=== PATIENT | female | born 1940 | race Caucasian/White ===

== ENCOUNTER 2016-09-27 08:02 | Day surgery (SDC) | payer OTHER ==
[~2016-09-27 08:02] MED LIST: CITA10TA4 PO; DIAZ2 PO; FURO1TAB93 PO; LACT20SO4 PO; LEVO88TA2 PO; SODI650T PO; SPIR50TA21 PO
[2016-09-27 08:30] VITALS: BP 119/66; PULSE 64; RESP 14; TEMP 97.2; O2SAT 98
[2016-09-27 10:18] VITALS: BP 100/55; PULSE 68; RESP 20; TEMP 98.3; O2SAT 99
[2016-09-27] MEDS ORDERED: ALBUMIN HUMAN 25% 50 GM IV ONE (10:30)
[2016-09-27 10:35] VITALS: BP 106/56; PULSE 68; RESP 20; O2SAT 99
--- NOTE | 2016-09-27 13:14 | RADRPT ---
EXAM DATE/TIME: 09/27/2016 08:29 [facility] COMPARISON: US GUIDED ABD PARACENTESIS, September 20, 2016, 8:13. EXTERNAL COMPARISON : [facility], US ABDOMEN LIMITED, August 12, 2016, June 04, 2016. INDICATIONS : Ascites. MEDICAL HISTORY : Arthritis. Hypothyroidism. Ascites. CAD. ESLD. Stage III renal disease. Lower back pain. SURGICAL HISTORY : Appendectomy. Collar bone repair. Paracentesis. ENCOUNTER: Sequela ACUITY: 1 week PAIN SCORE: 1/10 LOCATION: Right lower quadrant FLUID: Total volume of 7,300 cc of clear, yellow fluid was removed. Fluid was discarded. Paracentesis was therapeutic only. Post procedure scanning reveals no hematoma or other complication. TECHNIQUE: 1. Ultrasound guidance for abdominal paracentesis. 2. Paracentesis. The risks, benefits, and alternatives to ultrasound guided paracentesis were explained to the patient in detail including the risk of bleeding and infection. Written and verbal informed consent was obt ained. With the patient on the ultrasound table, ultrasound imaging was used to select the most appropriate approach for paracentesis. Overlying skin was prepped and draped in the usual sterile fashion and wi th a local anesthetic, a dermatotomy was made with an 11 blade scalpel. A 6 [place]ian Wcj-K-hhbdwooq ca theter was introduced into the peritoneal cavity and fluid was collected. The patient tolerated the procedure well and left the ultrasound suite in stable condition. CONCLUSION: Uncomplicated ultrasound guided paracentesis. Patient received albumin per protocol. Papo Keating MD FACR on September 27, 2016 at 13:12 Board Certified Radiologist. This report was verified electronically.
== END 2016-09-27 11:15 | disposition home or self-care (01) ==
LOC: HRAD 08:02 → HRIP 08:03 → HRAD 11:15
PROVIDERS: ATTEND Family Medicine
DX: R18.8 Other ascites (principal); I25.10 Atherosclerotic heart disease of native coronary artery without angina pectoris; E03.9 Hypothyroidism, unspecified; M19.90 Unspecified osteoarthritis, unspecified site
CPT/HCPCS: 49083; C1729; P9047

== ENCOUNTER 2016-10-04 08:11 | Day surgery (SDC) | payer OTHER ==
[2016-10-04 08:39] VITALS: BP 115/56; PULSE 67; RESP 14; TEMP 97; O2SAT 99
[2016-10-04 09:49] VITALS: BP 98/54; PULSE 67; RESP 14; TEMP 97; O2SAT 93
[2016-10-04 09:50] VITALS: BP 113/58; PULSE 67; RESP 18; TEMP 98.3; O2SAT 96
[2016-10-04] MEDS ORDERED: ALBUMIN HUMAN 25% 12.5GM-W/25GM FOR 37.5GM IV ONE (10:00)
[2016-10-04] MEDS ORDERED: ALBUMIN HUMAN 25% 25GM-W/12.5GM FOR 37.5GM IV ONE (10:00)
[2016-10-04 10:05] VITALS: BP 94/47; PULSE 85; RESP 16; O2SAT 95
--- NOTE | 2016-10-04 11:18 | RADRPT ---
EXAM DATE/TIME: 10/04/2016 08:33 [facility] COMPARISON: US GUIDED ABD PARACENTESIS, September 27, 2016, 8:29. INDICATIONS : Ascites. MEDICAL HISTORY : Arthritis. Hypothyroidism. Ascites. CAD. ESLD. Stage III renal disease. Lower back pain. SURGICAL HISTORY : Appendectomy. Collar bone repair. Paracentesis. ENCOUNTER: Sequela ACUITY: 1 week PAIN SCORE: 1/10 LOCATION: Right lower quadrant FLUID: Total volume of 6300 cc of clear, yellow fluid was removed. Fluid was discarded. Paracentesis was therapeutic only. Post procedure scanning reveals no hematoma or other complication. TECHNIQUE: 1. Ultrasound guidance for abdominal paracentesis. 2. Paracentesis. The risks, benefits, and alternatives to ultrasound guided paracentesis were explained to the patient in detail including the risk of bleeding and infection. Written and verbal informed consent was obt ained. Under direct ultrasound guidance 6-Latvian catheter was placed the peritoneal space and paracentesis p erformed. The patient tolerated the procedure well and left the ultrasound suite in stable condition. CONCLUSION: Uncomplicated ultrasound guided paracentesis. Patient received albumin per protocol. Papo Keating MD FACR on October 04, 2016 at 11:15 Board Certified Radiologist. This report was verified electronically.
== END 2016-10-04 10:45 | disposition home or self-care (01) ==
LOC: HRAD 08:11 → HRIP 08:12 → HRAD 10:45
PROVIDERS: ATTEND Family Medicine
DX: R18.8 Other ascites (principal)
CPT/HCPCS: 49083; 96365; C1729; P9047

== ENCOUNTER 2016-10-11 08:02 | Day surgery (SDC) | payer OTHER ==
[2016-10-11 08:28] VITALS: BP 103/53; PULSE 62; RESP 14; TEMP 97; O2SAT 91
--- NOTE | 2016-10-11 09:40 | PD.RAD ---
Post US Procedure Prog Note Pre Procedure Diagnosis: (1) Ascites (2) Cirrhosis Post Procedure Diagnosis: (1) Ascites (2) Cirrhosis Procedure Date: Oct 11, 2016 Supervising Radiologist: Hugo Kaye Anesthesia: Local Plan of Activity Patient to Unit: ROPU Patient Condition: Fair See PACS Report for procedural detail/treatment Drainage Procedure Procedure 1 Imaging Guidance: Ultrasound Side: Right Procedure Type: Paracentesis Procedure: Removal Drainage: Suction Fluid Description: Clear, Yellow Hugo Kaye MD Oct 11, 2016 09:40
[2016-10-11 10:30] VITALS: BP 99/54; PULSE 62; RESP 18; O2SAT 100
[2016-10-11 10:50] VITALS: BP 100/49; PULSE 65; RESP 18
[2016-10-11] MEDS ORDERED: ALBUMIN HUMAN 25% 25GM-W/12.5GM FOR 37.5GM IV ONE (11:00)
[2016-10-11] MEDS ORDERED: ALBUMIN HUMAN 25% 12.5GM-W/25GM FOR 37.5GM IV ONE (11:00)
--- NOTE | 2016-10-11 11:46 | RADRPT ---
EXAM DATE/TIME: 10/11/2016 08:32 [facility] COMPARISON: EXTERNAL COMPARISON: US GUIDED ABD PARACENTESIS, October 04, 2016, 8:33. [facility], US ABDOMEN - UPPER LIMITED, Aug 12 2016. US ABDOMEN - UPPER LIMITED, June 04, 2016. INDICATIONS : Ascites. MEDICAL HISTORY : Arthritis. Hypothyroidism. Ascites. Coronary artery diease. ESLD non- alcoholic. Stage III renal dis ease. Lower back pain. SURGICAL HISTORY : Appendectomy. Collar bone repair. Paracentesis. ENCOUNTER: Sequela ACUITY: 1 week PAIN SCORE: 1/10 LOCATION: Right lower quadrant FLUID: Total volume of 6500 cc of clear, yellow fluid was removed. Fluid was discarded. Paracentesis was therapeutic only. Post procedure scanning reveals no hematoma or other complication. TECHNIQUE: 1. Ultrasound guidance for abdominal paracentesis. 2. Paracentesis. The risks, benefits, and alternatives to ultrasound guided paracentesis were explained to the patient in detail including the risk of bleeding and infection. Written and verbal informed consent was obt ained. With the patient on the ultrasound table, ultrasound imaging was used to select the most appropriate approach for paracentesis. Overlying skin was prepped and draped in the usual sterile fashion and wi th a local anesthetic, a dermatotomy was made with an 11 blade scalpel. A 6 [place]se Hvy-G-hwrpgedt ca theter was introduced into the peritoneal cavity and fluid was collected. The patient tolerated the procedure well and left the ultrasound suite in stable condition. CONCLUSION: Uncomplicated ultrasound guided paracentesis. Hugo Kaye MD on October 11, 2016 at 11:44 Board Certified Radiologist. This report was verified electronically.
== END 2016-10-11 12:39 | disposition home or self-care (01) ==
LOC: HRIP 08:02 → HRAD 08:02
PROVIDERS: ATTEND Family Medicine
DX: R18.8 Other ascites (principal)
CPT/HCPCS: 49083; C1729; P9047

== ENCOUNTER 2016-10-18 08:28 | Day surgery (SDC) | payer OTHER ==
[2016-10-18] MEDS ORDERED: ALBUMIN HUMAN 25% 25 GM/100 ML BAGP IV ONE (10:00)
[2016-10-18 10:10] VITALS: BP 122/65; PULSE 68; RESP 18; TEMP 98; O2SAT 99
[2016-10-18 10:25] VITALS: BP 119/60; PULSE 68; RESP 16; O2SAT 99
[2016-10-18] MEDS ORDERED: FURO1TAB60 PO ×2 (11:46)
[2016-10-18] MEDS ORDERED: LACT10SO PO (11:49)
[2016-10-18] MEDS ORDERED: LEVO88TA2 PO (11:49)
[2016-10-18] MEDS ORDERED: SPIR50TA PO (11:49)
[2016-10-18] MEDS ORDERED: CITA10TA4 PO (11:49)
--- NOTE | 2016-10-18 13:37 | RADRPT ---
EXAM DATE/TIME: 10/18/2016 08:49 [facility] COMPARISON: EXTERNAL COMPARISON: US GUIDED ABD PARACENTESIS, October 11, 2016, 8:32. US GUIDED ABD PARACENTESIS, October 04, 2016, 8: 33. [facility], US ABDOMEN - UPPER LIMITED, Aug 12 2016. US ABDOMEN - UPPER LIMITED,Sept er 2015. INDICATIONS : Ascites. MEDICAL HISTORY : Arthritis. Hypothyroidism. Ascites. Coronary artery disease. ESLD nonalcoholic. Stage III renal disea se. Lower back pain. SURGICAL HISTORY : Appendectomy. Collar bone repair. Paracentesis. ENCOUNTER: Sequela ACUITY: 1 week PAIN SCORE: 0/10 LOCATION: Right lower quadrant FLUID: Total volume of 7,800 cc of clear, yellow fluid was removed. Fluid was discarded. Paracentesis was therapeutic only. Post procedure scanning reveals no hematoma or other complication. TECHNIQUE: 1. Ultrasound guidance for abdominal paracentesis. 2. Paracentesis. The risks, benefits, and alternatives to ultrasound guided paracentesis were explained to the patient in detail including the risk of bleeding and infection. Written and verbal informed consent was obt ained. With the patient on the ultrasound table, ultrasound imaging was used to select the most appropriate approach for paracentesis. Overlying skin was prepped and draped in the usual sterile fashion and wi th a local anesthetic, a dermatotomy was made with an 11 blade scalpel. A 6 [place] Islander Bek-A-rboqwffm ca theter was introduced into the peritoneal cavity and fluid was collected. The patient tolerated the procedure well and left the ultrasound suite in stable condition. CONCLUSION: Uncomplicated ultrasound guided paracentesis. Patient received albumin per protocol. Papo Keating MD FACR on October 18, 2016 at 13:26 Board Certified Radiologist. This report was verified electronically.
[2016-10-18] MEDS ORDERED: BACT2OIN TOPICAL (13:39)
== END 2016-10-18 11:10 | disposition home or self-care (01) ==
LOC: HRAD 08:28 → HRIP 08:29 → HRAD 11:10
PROVIDERS: ATTEND Family Medicine
DX: R18.8 Other ascites (principal)
CPT/HCPCS: 49083; 96365; C1729; P9047

== ENCOUNTER 2016-10-18 11:12 | Emergency (ER) | payer OTHER ==
[~2016-10-18] VITALS: Ht 170.2 cm; Wt 60.0 kg
[2016-10-18 11:14] VITALS: BP 91/50; PULSE 69; RESP 14; TEMP 97.7; O2SAT 95
[2016-10-18] MEDS ORDERED: FURO1TAB60 PO ×2 (11:46)
[2016-10-18] MEDS ORDERED: LEVO88TA2 PO (11:49)
[2016-10-18] MEDS ORDERED: SPIR50TA PO (11:49)
[2016-10-18] MEDS ORDERED: LACT10SO PO (11:49)
[2016-10-18] MEDS ORDERED: CITA10TA4 PO (11:49)
--- NOTE | 2016-10-18 11:54 | PD ---
HPI Chief Complaint: Fall Time Seen by Provider: 11:58 Travel History International Travel<30 days: No Contact w/Intl Traveler<30days: No Traveled to known affect area: No History of Present Illness HPI 76-year-old female with history of cirrhosis, on paracentesis every Friday presents to the ED for evaluation after fall. The patient states that she thinks that she "turned too quickly" and became slightly dizzy and lost her balance, falling into the wall. She endorses hitting her head. She denies loss of consciousness. On presentation she complains of multiple skin tears. She denies headache, dizziness, vision changes. She denies neck pain, back pain , pain in the extremities. She is ambulatory with a walker. PFSH Past Medical History Arthritis: Yes Cancer: No Cardiovascular Problems: No Cirrhosis: Yes (liver) Coronary Artery Disease: Yes Diabetes: No Endocrine: Yes Gastrointestinal Disorders: Yes (ESLD- non-alcoholic) Genitourinary: No Hepatitis: No Hiatal Hernia: No Immune Disorder: No Musculoskeletal: Yes (Low back pain/arthritis) Neurologic: No Psychiatric: No Reproductive: No Respiratory: No Thyroid Disease: Yes Tetanus Vaccination: < 5 Years ?: Not Menopausal: Yes Past Surgical History Abdominal Surgery: Yes (APPENDECTOMY) AICD: No Appendectomy: Yes Joint Replacement: No Pacemaker: No Other Surgery: Yes (APPENDECTOMY, COLLAR BONE REPAIR A CHILD) Social History Alcohol Use: No Tobacco Use: No Substance Use: No Allergies-Medications (Allergen,Severity, Reaction): Coded Allergies: No Known Allergies (Unverified , 10/18/16) Reported Meds & Prescriptions Reported Meds & Active Scripts Active Bactroban Topical (Mupirocin) 2% Oint 1 Appl TOPICAL BID 10 Days Reported Levothyroxine (Levothyroxine Sodium) 88 Mcg Tab 88 Mcg PO DAILY Citalopram (Citalopram Hydrobromide) 10 Mg Tab 10 Mg PO DAILY Lactulose Liq (Lactulose) 10 Gm/15 Ml Soln 50 Mg PO BID Spironolactone 50 Mg Tab 50 Mg PO BIDPC Lasix (Furosemide) 40 Mg Tab 40 Mg PO HS Lasix (Furosemide) 40 Mg Tab 60 Mg PO DAILY Review of Systems Except as stated in HPI: all other systems reviewed are Neg Physical Exam Narrative GENERAL: Well-nourished, well-developed elderly white female in no acute distress. SKIN: Warm and dry. Patient has a 1.5 cm skin tear on the left shoulder, 1.5 cm skin tear on the left knee. The right forearm has multiple, large skin tears. The largest is approximately 10 cm. No active bleeding. No visible foreign body. HEAD: Normocephalic. Atraumatic. No raccoon eyes or mcguire sign. No tenderness to palpation of the skull. No bony step-offs. No malocclusion of the teeth. EYES: No scleral icterus. No injection or drainage. PERRLA. EOMI. ENT: Pearly grijalva tympanic membrane is bilaterally. Nasal mucosa is moist. Oropharynx without erythema, edema or exudate. NECK: Supple, trachea midline. No JVD or lymphadenopathy. No midline tenderness to palpation. Patient retains full, active, painless range of motion of the neck. CARDIOVASCULAR: Regular rate and rhythm without murmurs, gallops, or rubs. 2+ DP and radial pulses bilaterally. RESPIRATORY: Breath sounds clear and equal bilaterally. No accessory muscle use. GASTROINTESTINAL: Abdomen soft, non-tender, nondistended. + Bowel sounds MUSCULOSKELETAL: No cyanosis, or edema. No tenderness to palpation or limitations to range of motion of the joints of the upper and lower extremities bilaterally. NEUROLOGICAL: Awake and alert. Cranial nerves II through XII intact. Motor and sensory grossly within normal limits. 5/5 muscle strength in all muscle groups. Normal speech. BACK: Nontender without obvious deformity. No CVA tenderness. No midline tenderness. tenderness. Data Data Last Documented VS Vital Signs Date Time Temp Pulse Resp B/P Pulse Ox O2 Delivery O2 Flow Rate FiO2 10/18/16 13:50 68 16 100/68 99 10/18/16 11:[address] Brain W/O Iv Contrast(Rout) (10/18/16 12:19) Ct Cerv Spine W/O Contrast (10/18/16 12:19) Morphine Inj (Morphine Inj) (10/18/16 12:30) MDM Medical Decision Making Medical Screen Exam Complete: Yes Emergency Medical Condition: Yes Differential Diagnosis Laceration versus abrasion versus skin tear versus fall versus skull fracture versus intracranial hemorrhage versus cervical spinal injury versus other Narrative Course 76-year-old female with history of cirrhosis, on paracentesis every Friday presents to the ED for evaluation after fall. The patient states that she thinks that she "turned too quickly" became dizzy,lost her balance,fell into the wall. She endorses hitting her head. She denies LOC. She denies headache, dizziness, vision changes. She denies neck pain, back pain, pain in the extremities. She had paracentesis today, was advised to have her skin tears addressed in the ED before discharge. Vitals reviewed. On physical exam the patient is alert, oriented. There are multiple skin tears, including several large tears of the right forearm. No focal neural deficits. No limitations to range of motion or tenderness to palpation of the joints of the extremities. I discussed the episodic dizziness. I offered the patient further evaluation into the cause of her dizziness. The patient and her daughter declined further workup, stating that the patient falls often, is followed closely by her other providers. The patient's wounds were cleansed and repaired with Steri-Strips and benzoin. Clean, dry dressings were applied. CT of the head is negative for acute pathology. Cervical spinal CT reveals multiple degenerative changes but no acute problems per radiology read. Patient was prescribed Bactroban ointment. She has an appointment with her PCP on Friday. She is advised to leave the dressings in place until seen by the PCP. After that change the dressings daily, apply Bactroban with each dressing change. Discussed signs of infection, reasons to return to the ED. The patient and her daughter indicated understanding of the instructions. They are amenable to plan of care. This patient is stable and discharged home. Diagnosis Primary Impression: Fall Qualified Code: W19.XXXA - Fall, initial encounter Additional Impressions: Skin tear of right elbow without complication Qualified Code: S51.001A - Skin tear of right elbow without complication, initial encounter Skin tear of right forearm without complication Qualified Code: S51.801A - Skin tear of right forearm without complication, initial encounter Skin tear of right hand without complication Qualified Code: S61.411A - Skin tear of right hand without complication, initial encounter Skin tear of left lower leg without complication Qualified Code: S81.802A - Skin tear of left lower leg without complication, initial encounter Referrals: Primary Care Physician Patient Instructions: Acute Wound Care (ED), General Instructions Additional Instructions: Keep the wounds clean, dry and covered. Follow-up with primary care on Friday as discussed. Apply Bactroban ointment daily before re-covering with a clean dry dressing after seeing a primary care. Monitor for signs of infection as discussed. Return to the ED for any urgent or emergent medical condition. Med/Other Pt SpecificInfo: Prescription(s) given Scripts Mupirocin Topical (Bactroban Topical)2% Oint1 Appl TOPICAL BID 10 Days Ref 0 Prov:Brittany Cardona MD 10/18/16 Disposition: 01 DISCHARGE HOME Condition: Stable Cristina Mead Oct 18, 2016 11:53
[2016-10-18] MEDS ORDERED: MORPHINE SULFATE 4 MG/ML INJ IM ONE ×2 (12:15→12:30)
--- NOTE | 2016-10-18 13:26 | RADRPT ---
EXAM DATE/TIME: 10/18/2016 13:09 [facility] COMPARISON: No previous studies available for comparison. INDICATIONS : Dizziness, fall today. RADIATION DOSE: 56.35 CTDIvol (mGy) MEDICAL HISTORY : Renal failure, chronic. SURGICAL HISTORY : None. ENCOUNTER: Initial ACUITY: 1 day PAIN SCALE: 4/10 LOCATION: cranial TECHNIQUE: Multiple contiguous axial images were obtained of the head. Using automated exposure control and adj ustment of the mA and/or kV according to patient size, radiation dose was kept as low as reasonably a chievable to obtain optimal diagnostic quality images. FINDINGS: CEREBRUM: The ventricles are normal for age. No evidence of midline shift, mass lesion, hemorrhage or acute in farction. No extra-axial fluid collections are seen. POSTERIOR FOSSA: The cerebellum and brainstem are intact. The 4th ventricle is midline. The cerebellopontine angle i s unremarkable. EXTRACRANIAL: The visualized portion of the orbits is intact. SKULL: The calvaria is intact. No evidence of skull fracture. CONCLUSION: Normal examination. Jarrett Arellano MD on October 18, 2016 at 13:24 Board Certified Radiologist. This report was verified electronically.
--- NOTE | 2016-10-18 13:33 | RADRPT ---
EXAM DATE/TIME: 10/18/2016 13:09 [facility] COMPARISON: CT BRAIN W/O CONTRAST, October 18, 2016, 13:09. INDICATIONS : Trauma, fall today. RADIATION DOSE: 18.05 CTDIvol (mGy) MEDICAL HISTORY : Renal failure, chronic. SURGICAL HISTORY : None. ENCOUNTER: Initial ACUITY: 1 day PAIN SCALE: 4/10 LOCATION: neck TECHNIQUE: Volumetric scanning of the cervical spine was performed. Multiplanar reconstructions in the sagittal, coronal and oblique axial planes were performed. Using automated exposure control and adjustment o f the mA and/or kV according to patient size, radiation dose was kept as low as reasonably achievable to obtain optimal diagnostic quality images. FINDINGS: Vascular calcifications are noted in the bilateral carotids at the bulb. Soft tissues are otherwise n egative. Bony structures are intact with mild reversal of normal cervical curvature and no evidence o f fracture, compression, subluxation, or destructive change. Degenerative disc disease is noted with narrowing C5-6 and C6-7 small circumferential spurring at these levels with uncovertebral encroachmen t on neural foramina and mild central arthritis complex which upon the canal. Mild narrowing C3-4. Mu ltilevel posterior lateral mass facet arthritic change. CONCLUSION: No acute bony injury. Extensive degenerative changes described above Jarrett Arellano MD on October 18, 2016 at 13:28 Board Certified Radiologist. This report was verified electronically.
[2016-10-18] MEDS ORDERED: BACT2OIN TOPICAL (13:39)
[2016-10-18 13:50] VITALS: BP 100/68
== END 2016-10-18 14:09 | disposition home or self-care (01) ==
LOC: NETRI 11:12
DX: S51.011A Laceration without foreign body of right elbow, initial encounter (principal); S51.811A Laceration without foreign body of right forearm, initial encounter; S61.411A Laceration without foreign body of right hand, initial encounter; S81.812A Laceration without foreign body, left lower leg, initial encounter; W18.39XA Other fall on same level, initial encounter
CPT/HCPCS: 70450; 72125; 96372; 99284; J2270

== ENCOUNTER 2016-10-20 | Observation (INO) | payer OTHER ==
[2016-10-20] VITALS (13 sets, daily range): BP systolic 87–111; BP diastolic 50–62; PULSE 68–78; RESP 14–20; TEMP 97.2–99; O2SAT 92–98
[~2016-10-20] VITALS: Ht 165.1 cm; Wt 62.2 kg
[~2016-10-20] MED LIST changes: +BACT2OIN TOPICAL; -DIAZ2 PO; +FURO1TAB60 PO; -FURO1TAB93 PO; +LACT10SO PO; -LACT20SO4 PO; -SODI650T PO; +SPIR50TA PO; -SPIR50TA21 PO
--- NOTE | 2016-10-20 00:15 | PD ---
HPI Chief Complaint: fall Time Seen by Provider: 00:10 Travel History International Travel<30 days: No Contact w/Intl Traveler<30days: No Traveled to known affect area: No History of Present Illness HPI 76-year-old female presents to the emergency department by EMS transport from home after a fall at home approximately 30 minutes prior to arrival to the hospital. Patient reports that she was up out of bed on her way to use the bathroom when she thinks she passed out. Patient states she was able to scoot to the telephone and call her daughter who came along with her to the patient get up off the floor. Patient sustained a scalp laceration. Patient has mild headache. Patient denies any neck pain. Patient denies chest pain rib pain shortness of breath abdominal pain back pain pelvic pain or extremity pain. Patient has a bandage to the right forearm which she states was placed on Friday after she had a non-syncopal slip and fall at the hospital after undergoing paracentesis. Patient has end-stage liver disease with ascites and reportedly has frequent paracentesis on Fridays. Patient states she just turned too quickly caused herself to be dizzy and then fell down. Patient states she did not hit her head at that time. Patient reports her tetanus status is less than 5 years. Patient does not report any chest pain shortness of breath abdominal pain or other injury. Patient does have history of hypertension hypothyroidism non-alcohol related cirrhosis with ascites CAD and arthritis. Patient does not drink alcohol. [facility] Past Medical History Narrative Medical CAD, arthritis, cirrhosis, ascites, hypothyroidism, appendectomy, no alcohol use : Nursing notes reviewed Arthritis: Yes Cancer: No Cardiovascular Problems: No Cirrhosis: Yes (liver) Coronary Artery Disease: Yes Diabetes: No Endocrine: Yes Gastrointestinal Disorders: Yes (ESLD- non-alcoholic) Genitourinary: No Hepatitis: No Hiatal Hernia: No Immune Disorder: No Musculoskeletal: Yes (Low back pain/arthritis) Neurologic: No Psychiatric: No Reproductive: No Respiratory: No Thyroid Disease: Yes Menopausal: Yes Past Surgical History Abdominal Surgery: Yes (APPENDECTOMY) AICD: No Appendectomy: Yes Joint Replacement: No Pacemaker: No Other Surgery: Yes (APPENDECTOMY, COLLAR BONE REPAIR A CHILD) Social History Alcohol Use: No Tobacco Use: No Substance Use: No Allergies-Medications (Allergen,Severity, Reaction): Coded Allergies: No Known Allergies (Unverified , 10/20/16) Reported Meds & Prescriptions Reported Meds & Active Scripts Active Reported Levothyroxine (Levothyroxine Sodium) 88 Mcg Tab 88 Mcg PO DAILY Citalopram (Citalopram Hydrobromide) 10 Mg Tab 10 Mg PO DAILY Lactulose Liq (Lactulose) 10 Gm/15 Ml Soln 50 Mg PO BID Spironolactone 50 Mg Tab 50 Mg PO BIDPC Lasix (Furosemide) 40 Mg Tab 40 Mg PO HS Lasix (Furosemide) 40 Mg Tab 60 Mg PO DAILY Review of Systems Except as stated in HPI: all other systems reviewed are Neg General / Constitutional: No: Fever Eyes: No: Visual changes HENT: Positive: Headaches, No: Neck Stiffness, Neck Pain Cardiovascular: Positive: Syncope, No: Chest Pain or Discomfort, Palpitations , Diaphoresis Respiratory: No: Shortness of Breath Gastrointestinal: No: Nausea, Vomiting, Abdominal Pain Genitourinary: No: Dysuria Musculoskeletal: No: Pain Skin: Positive Rash, Positive Other (multiple skin tears) Neurologic: Positive: Weakness, Dizziness, Syncope Psychiatric: No: Anxiety Hematologic/Lymphatic: Positive: Easy Bruising Physical Exam Narrative GENERAL: Well-developed well-nourished female in no acute distress no respiratory distress SKIN: Warm and dry. HEAD: Atraumatic. Normocephalic. Right scalp puncture wound laceration EYES: Pupils equal and round. No scleral icterus. No injection or drainage. ENT: No nasal bleeding or discharge. Mucous membranes pink and moist. NECK: Trachea midline. No JVD. No midline tenderness to direct palpation along the cervical spine no bony step-off. CARDIOVASCULAR: Regular rate and rhythm. RESPIRATORY: No accessory muscle use. Clear to auscultation. Breath sounds equal bilaterally. GASTROINTESTINAL: Abdomen soft, non-tender, nondistended. Hepatic and splenic margins not palpable. MUSCULOSKELETAL: Extremities without clubbing, cyanosis, or edema. No obvious deformities. Extensive skin tear to the right forearm with dressing in place with fresh and dried blood on the Telfa dressing. No deformity. NEUROLOGICAL: Awake and alert. No obvious cranial nerve deficits. Motor grossly within normal limits. Five out of 5 muscle strength in the arms and legs. Normal speech. PSYCHIATRIC: Appropriate mood and affect; insight and judgment normal. Data Data Last Documented VS Vital Signs Date Time Temp Pulse Resp B/P Pulse Ox O2 Delivery O2 Flow Rate FiO2 1/29/17 01:50 69 20 111/55 98 10/20/16 00:03 98.1 Orders Basic Metabolic Panel (Bmp) (10/20/16 00:16) Complete Blood Count With Diff (10/20/16 00:16) Prothrombin Time / Inr (Pt) (10/20/16 00:16) Act Partial Throm Time (Ptt) (10/20/16 00:16) Urinalysis - C+S If Indicated (10/20/16 00:16) Ct Brain W/O Iv Contrast(Rout) (10/20/16 00:16) Ct Cerv Spine W/O Contrast (10/20/16 00:16) Iv Access Insert/Monitor (10/20/16 00:16) Ecg Monitoring (10/20/16 00:16) Oximetry (10/20/16 00:16) Sodium Chloride 0.9% Flush (Ns Flush) (10/20/16 00:30) Electrocardiogram (10/20/16 ) Magnesium (Mg) (10/20/16 00:16) Troponin I (10/20/16 00:16) Urine Culture (10/20/16 01:05) Sodium Chlor 0.9% 250 Ml Inj (Ns 250 Ml (10/20/16 02:00) Ceftriaxone Inj (Rocephin Inj) (10/20/16 02:00) Lactic Acid (10/20/16 01:53) Blood Culture (10/20/16 01:53) Ceftriaxone Inj (Rocephin Inj) (10/20/16 23:00) Place In Observation (10/20/16 ) Vital Signs (Adult) Q4H (10/20/16 02:09) Activity Oob With Assistance (10/20/16 02:09) Ob Gyn Physician Assistant / Telemetry .CONTINUOUS (10/20/16 02:09) Intake + Output DELMY.QSHIFT (10/20/16 02:09) Diet Regular Basic (10/20/16 Breakfast) Sodium Chloride 0.9% Flush (Ns Flush) (10/20/16 02:15) Sodium Chloride 0.9% Flush (Ns Flush) (10/20/16 09:00) Ondansetron Inj (Zofran Inj) (10/20/16 02:15) Bisacodyl Supp (Dulcolax Supp) (10/20/16 02:15) Comprehensive Metabolic Panel (10/21/16 06:00) Complete Blood Count With Diff (10/21/16 06:00) Scd Bilateral/Knee High DELMY.BID (10/20/16 02:09) Mian Bilateral/Knee High DELMY.QSHIFT (10/20/16 02:09) Acetaminophen (Tylenol) (10/20/16 02:15) Oxycodone (Roxicodone) (10/20/16 02:15) Oxycodone (Roxicodone) (10/20/16 02:15) Citalopram (Celexa) (10/20/16 09:00) Lactulose Liq (Lactulose Liq) (10/20/16 09:00) Levothyroxine (Synthroid) (10/20/16 06:00) Admit Order (Ed Use Only) (10/20/16 ) ^ Saline Lock (10/20/16 02:11) Resp Oxygen Fan C Titrat 1-4 L (10/20/16 ) ^ Notify Dr: Other (10/20/16 02:11) Sodium Chloride 0.9% Flush (Ns Flush) (10/20/16 09:00) Sodium Chloride 0.9% Flush (Ns Flush) (10/20/16 02:15) Labs Laboratory Tests Test 10/20/16 10/20/16 00:30 01:05 White Blood Count 6.0 TH/MM3 Red Blood Count 3.18 MIL/MM3 Hemoglobin 10.6 GM/DL Hematocrit 31.9 % Mean Corpuscular Volume 100.5 FL Mean Corpuscular Hemoglobin 33.4 PG Mean Corpuscular Hemoglobin 33.2 % Concent Red Cell Distribution Width 14.3 % Platelet Count 168 TH/MM3 Mean Platelet Volume 6.7 FL Neutrophils (%) (Auto) 78.0 % Lymphocytes (%) (Auto) 6.3 % Monocytes (%) (Auto) 10.4 % Eosinophils (%) (Auto) 4.5 % Basophils (%) (Auto) 0.8 % Neutrophils # (Auto) 4.7 TH/MM3 Lymphocytes # (Auto) 0.4 TH/MM3 Monocytes # (Auto) 0.6 TH/MM3 Eosinophils # (Auto) 0.3 TH/MM3 Basophils # (Auto) 0.0 TH/MM3 CBC Comment DIFF FINAL Differential Comment Prothrombin Time 12.1 SEC Prothromb Time International 1.1 RATIO Ratio Activated Partial 26.9 SEC Thromboplast Time Sodium Level 130 MEQ/L Potassium Level 4.8 MEQ/L Chloride Level 97 MEQ/L Carbon Dioxide Level 22.4 MEQ/L Anion Gap 11 MEQ/L Blood Urea Nitrogen 35 MG/DL Creatinine 1.80 MG/DL Estimat Glomerular Filtration 27 ML/MIN Rate Random Glucose 92 MG/DL Calcium Level 8.0 MG/DL Magnesium Level 2.3 MG/DL Troponin I LESS THAN 0.02 NG/ML Urine Color YELLOW Urine Turbidity SLIGHT Urine pH 5.5 Urine Specific [place] 1.007 Urine Protein NEG mg/dL Urine Glucose (UA) NEG mg/dL Urine Ketones NEG mg/dL Urine Occult Blood TRACE Urine Nitrite NEG Urine Bilirubin NEG Urine Leukocyte Esterase LARGE Urine RBC 3-5 /hpf Urine WBC 50-99 /hpf Urine WBC Clumps FEW Urine Squamous Epithelial 0-5 /hpf Cells Urine Bacteria MANY /hpf Microscopic Urinalysis Comment CULTURE INDICATED MDM Medical Decision Making Medical Screen Exam Complete: Yes Emergency Medical Condition: Yes Medical Record Reviewed: Yes Interpretation(s) CBC & BMP Diagram 10/20/16 00:30 EKG normal sinus rhythm rate [address] elevation or injury pattern change noted troponin I: less than 0.02, not elevated Urinalysis positive bacteria white blood cells clumped white blood cells and leukocyte Estrace CT brain noncontrast: CONCLUSION: Normal examination. Alonso Montano MD on October 20, 2016 at 1:28 Board Certified Radiologist. This report was verified electronically. CT cervical spine w/o: CONCLUSION: Degenerative changes without evidence for acute fracture or listhesis. Alonso Montano MD on October 20, 2016 at 1:43 Board Certified Radiologist. This report was verified electronically. Differential Diagnosis Syncope, arrhythmia, anemia, dehydration, sepsis, UTI, ACS, CHI, ICH Narrative Course Patient placed on ekg monitor IV access obtained specimens collected and sent for resulting EKG performed consistent with sinus rhythm rate [address] elevation or injury pattern change noted Right forearm with skin tears from Friday reassessed and new dressing applied; patient with scalp abrasion/skin Tear Patient sent for imaging CT of the brain and cervical spine CT brain noncontrast no acute abnormality CT cervical spine reveals no fracture or acute abnormality GCS remains 15; scalp abrasion/skin tear repaired with Dermabond Urinalysis is identified to have many bacteria white blood cells clumped white blood cells and leukocyte Estrace; patient and with family at bedside aware of plan to admit for syncopal episode possibly related to chronic history of recurrent hypotension and volume depletion from intravascular hypoalbuminemia and frequent paracentesis along with diuretic therapy and abrupt change of position from supine to standing prior to episode versus may be related to arrhythmia and now with abnormal urinalysis may be related to urinary tract infection versus early sepsis. Patient's case discussed with on-call [facility] MD for OBS. At this time patient does not meet SIRS or sepsis criteria and however prior to administration of IV antibiotic lactic acid specimen collected along with blood cultures 2. Patient's nurse reports patient with frequent up out of bed to bedside commode for urine output of only approximately 100 cc that time; bladder scan at bedside performed with retained urine 765 cc; urinary catheter ordered for insertion. Physician Communication Physician Communication discussed with Dr Castellanos--OBS Diagnosis Primary Impression: Syncope Qualified Code: R55 - Syncope, unspecified syncope type Additional Impressions: UTI (urinary tract infection) Qualified Code: N39.0 - Urinary tract infection without hematuria, site unspecified Scalp avulsion Qualified Code: S08.0XXA - Scalp avulsion, initial encounter Minor closed head injury Fall Qualified Code: W19.XXXA - Fall, initial encounter Cirrhosis Qualified Code: K74.69 - Other cirrhosis of liver Chronic kidney disease (CKD) Qualified Code: N18.9 - Chronic kidney disease (CKD), unspecified stage Admitting Information Admitting Physician Requests: Kitty Pruett MD Oct 20, 2016 00:15
[2016-10-20] MEDS ORDERED: SODIUM CHLORIDE 0.9% FLUSH 5 ML FLUSH IVF PRN ×2 (00:30→02:15)
[2016-10-20 00:48] LABS: AUTOMATED NEUTROPHIL # 4.7 TH/MM3 (1.8-7.7); BASOPHIL % 0.8 % (0.0-2.0); EOSINOPHIL # 0.3 TH/MM3 (0-0.4); EOSINOPHIL % 4.5 % (0.0-4.0); HEMATOCRIT 31.9 % (35.0-46.0); HEMO FLAGS DIFF FINAL; LYMPH % 6.3 % (9.0-44.0); LYMPHOCYTE # 0.4 TH/MM3 (1.0-4.8); MEAN CELL VOLUME 100.5 FL (80.0-100.0); MEAN CORPUSCULAR HEMOGLOBIN 33.4 PG (27.0-34.0); MEAN CORPUSCULAR HGB CONC 33.2 % (32.0-36.0); MONO % 10.4 % (0.0-8.0); PLATELET COUNT 168 TH/MM3 (150-450); RED BLOOD COUNT 3.18 MIL/MM3 (4.00-5.30); RED CELL DISTRIBUTION WIDTH 14.3 % (11.6-17.2)
[2016-10-20 00:56] LABS: CHLORIDE 97 MEQ/L (98-107); POTASSIUM 4.8 MEQ/L (3.5-5.1); SODIUM (NA) 130 MEQ/L (136-145)
[2016-10-20 00:59] LABS: ANION GAP 11 MEQ/L (5-15); BICARBONATE 22.4 MEQ/L (21.0-32.0); BLOOD UREA NITROGEN 35 MG/DL (7-18); MAGNESIUM 2.3 MG/DL (1.5-2.5)
[2016-10-20 01:00] LABS: APTT (PATIENT) 26.9 SEC (24.3-30.1); INTERNATIONAL NORMALIZED RATIO 1.1 RATIO; PROTHROMBIN TIME - PATIENT 12.1 SEC (9.8-11.6)
[2016-10-20 01:02] LABS: GLOMERULAR FILTRATION RATE 27 ML/MIN (>89)
[2016-10-20 01:10] LABS: BLOOD, URINE TRACE (NEG); GLUCOSE,URINE NEG (NEG); KETONE, URINE NEG (NEG); NITRITE,URINE NEG (NEG); PH, URINE 5.5 (5.0-8.5)
[2016-10-20 01:14] LABS: URINE COLOR YELLOW (YELLW/STRAW)
[2016-10-20 01:15] LABS: BACTERIA, URINE MANY /hpf; COMMENT (UR) CULTURE INDICATED; CULTURE IF INDICATED CULTURE INDICATED; SQUAMOUS EPITHELIAL CELL URINE 0-5 /hpf (0-5)
--- NOTE | 2016-10-20 01:30 | RADHPO ---
EXAM DATE/TIME: 10/20/2016 01:04 [facility] COMPARISON: CT BRAIN W/O CONTRAST, October 18, 2016, 13:09. INDICATIONS : Syncopal episode with fall. RADIATION DOSE: 60.8 CTDIvol (mGy) MEDICAL HISTORY : Coronary artery disease. SURGICAL HISTORY : None. ENCOUNTER: Initial ACUITY: 1 day PAIN SCALE: 7/10 LOCATION: cranial TECHNIQUE: Multiple contiguous axial images were obtained of the head. Using automated exposure control and adj ustment of the mA and/or kV according to patient size, radiation dose was kept as low as reasonably a chievable to obtain optimal diagnostic quality images. FINDINGS: CEREBRUM: The ventricles are normal for age. No evidence of midline shift, mass lesion, hemorrhage or acute in farction. No extra-axial fluid collections are seen. POSTERIOR FOSSA: The cerebellum and brainstem are intact. The 4th ventricle is midline. The cerebellopontine angle i s unremarkable. EXTRACRANIAL: The visualized portion of the orbits is intact. SKULL: The calvaria is intact. No evidence of skull fracture. CONCLUSION: Normal examination. Alonso Montano MD on October 20, 2016 at 1:28 Board Certified Radiologist. This report was verified electronically.
--- NOTE | 2016-10-20 01:46 | RADHPO ---
EXAM DATE/TIME: 10/20/2016 01:04 [facility] COMPARISON: CT CERVICAL SPINE W/O CONTRAST, October 18, 2016, 13:09. INDICATIONS : Syncopal episode with fall. RADIATION DOSE: 24.35 CTDIvol (mGy) MEDICAL HISTORY : Coronary artery disease. SURGICAL HISTORY : None. ENCOUNTER: Initial ACUITY: 1 day PAIN SCALE: 7/10 LOCATION: neck TECHNIQUE: Volumetric scanning of the cervical spine was performed. Multiplanar reconstructions in the sagittal, coronal and oblique axial planes were performed. Using automated exposure control and adjustment o f the mA and/or kV according to patient size, radiation dose was kept as low as reasonably achievable to obtain optimal diagnostic quality images. FINDINGS: No prevertebral soft tissue swelling or compression deformity. Multilevel [id number] degenera tive disc disease again noted greatest at C5-6 and C6-7. Acer-tc-kealccjr multilevel facet hypertroph ic changes are noted. The odontoid process is intact. Cervicothoracic junction is approximated. Multi level uncovertebral hypertrophy. CONCLUSION: Degenerative changes without evidence for acute fracture or listhesis. Alonso Montano MD on October 20, 2016 at 1:43 Board Certified Radiologist. This report was verified electronically.
[2016-10-20] MEDS ORDERED: SODIUM CHLOR 0.9% 250 ML INJ 250 ML IV ONE (02:00)
[2016-10-20] MEDS ORDERED: cefTRIAXone INJ 1,000 MG in SODIUM CHLORIDE 0.9% INJ 100 ML IV ONE (02:00)
[2016-10-20] MEDS ORDERED: ONDANSETRON HCL 4 MG/2 ML VIAL IVP PRN (02:15)
[2016-10-20] MEDS ORDERED: ACETAMINOPHEN 325 MG TAB PO PRN (02:15)
[2016-10-20] MEDS ORDERED: BISACODYL 10 MG SUPP PR PRN (02:15)
[2016-10-20] MEDS ORDERED: SODIUM CHLORIDE 0.9% FLUSH 5 ML FLUSH FLUSH PRN (02:15)
[2016-10-20] MEDS: LEVOTHYROXINE SODIUM 88 MCG TAB PO SCH (06:04)
[2016-10-20] MEDS: SODIUM CHLORIDE 0.9% FLUSH 5 ML FLUSH FLUSH SCH ×2 (08:33→20:57)
[2016-10-20] MEDS: LACTULOSE SYRUP 20 GM/30 ML CUP PO SCH ×2 (08:33→20:58)
[2016-10-20] MEDS: CITALOPRAM HYDROBROMIDE 20 MG TAB PO SCH (08:33)
[2016-10-20] MEDS ORDERED: SODIUM CHLORIDE 0.9% FLUSH 5 ML FLUSH IVF SCH (09:00)
[2016-10-20] MEDS: OXYBUTYNIN CHLORIDE 5 MG TAB PO SCH ×2 (11:11→20:57)
[2016-10-20] MEDS ORDERED: PILL SPLITTER OTHER PRN (11:15)
--- NOTE | 2016-10-20 13:16 | EKG ---
Date Performed: 10/20/2016 Time Performed: 00:29:04 PTAGE: 76 years EKG: Sinus rhythm . Poor R wave progression - probable normal variant Low QRS voltages in precordial leads Borderline E CG Compared to prior tracing no significant change PREVIOUS TRACING : 02/23/2016 13.43 DOCTOR: Yuri Hameed Interpretating Date/Time 10/20/2016 13:13:35
--- NOTE | 2016-10-20 14:58 | HHI.HP ---
[facility] Primary Care Physician Marita Coelho Do, MD Admission Diagnosis syncope; uti; h/o recurrent hypotension Diagnoses: Chief Complaint: Fall at home Travel History International Travel<30 Days: No Contact w/Intl Traveler <30 Da: No Traveled to Known Affected Are: No History of Present Illness This patient is a very pleasant 76-year-old female with end-stage liver disease , nonalcoholic who did have several falls over the last 48 hours at home. She fell Friday and injured her arm and head. She had an appointment for her scheduled paracentesis and after 7.8 L removed the patient did go to the emergency room for evaluation and management of skin tears. Patient subsequently went home and had another fall the next day. Patient has chronic weakness and is supposed to use her mechanical assistance devices but is nonadherent with these. She has lost weight and has become more frail per her daughter lives close by. She does care for herself in her activities of daily living are done independently. Patient however appears to have declined over the last several months and the family is quite concerned. She does have end- stage liver disease with chronic renal failure and has been on multiple diuretics and lactulose with poor oral intake. For these reasons the patient is admitted to the hospital for further evaluation and treatment Review of Systems Constitutional: DENIES: Diaphoretic episodes, Fatigue, Fever, Weight gain, Weight loss, Chills, Dizziness, Change in appetite, Night Sweats Endocrine: DENIES: Abnorml menstrual pattern, Heat/cold intolerance, Polydipsia , Polyuria, Polyphagia Eyes: DENIES: Blurred vision, Diplopia, Eye inflammation, Eye pain, Vision loss , Photosensitivity, Double Vision Ears, nose, mouth, throat: DENIES: Tinnitus, Hearing loss, Vertigo, Nasal discharge, Oral lesions, Throat pain, Hoarseness, Ear Pain, Running Nose, Epistaxis, Sinus Pain, Toothache, Odynophagia Cardiovascular: DENIES: Chest pain, Palpitations, Syncope, Dyspnea on Exertion , PND, Lower Extremity Edema, Orthopnea, Claudication Gastrointestinal: DENIES: Abdominal pain, Black stools, Bloody stools, Constipation, Diarrhea, Nausea, Vomiting, Difficulty Swallowing, Anorexia Genitourinary: DENIES: Abnormal vaginal bleeding, Dysmenorrhea, Dyspareunia, Sexual dysfunction, Urinary frequency, Urinary incontinence, Urgency, Hematuria , Dysuria, Nocturia, Vaginal discharge Musculoskeletal: DENIES: Joint pain, Muscle aches, Stiffness, Joint Swelling, Back pain, Neck pain Integumentary: DENIES: Abnormal pigmentation, Pruritus, Rash, Nail changes, Breast masses, Breast skin changes, Nipple discharge Hematologic/lymphatic: COMPLAINS OF: Bruising, DENIES: Lymphadenopathy Immunologic/allergic: DENIES: Eczema, Urticaria Neurologic: COMPLAINS OF: Poor Balance, DENIES: Abnormal gait, Headache, Localized weakness, Paresthesias, Seizures, Speech Problems, Tremor Psychiatric: DENIES: Anxiety, Confusion, Mood changes, Depression, Hallucinations, Agitation, Suicidal Ideation, Homicidal Ideation, Delusions Past Family Social History Allergies: Coded Allergies: No Known Allergies (Unverified , 10/20/16) Physical Exam Vital Signs Vital Signs Date Time Temp Pulse Resp B/P Pulse Ox O2 Delivery O2 Flow Rate FiO2 10/20/16 12:00 98.8 77 18 101/57 95 10/20/16 09:04 93 21 10/20/16 07:58 97.9 70 18 97/52 94 10/20/16 04:20 98.5 72 14 87/51 95 10/20/16 03:51 94 21 10/20/16 03:20 98.9 82 20 110/50 97 10/20/16 01:50 69 20 111/55 98 10/20/16 01:12 20 10/20/16 00:03 98.1 68 18 109/57 98 10/20/16 00:00 76 20 98/62 98 Physical Exam GENERAL: This is a frail elderly but well-developed patient, in no apparent distress. SKIN: Skin is paper thin and bruised, multiples sites have this severe skin tears especially on the right upper arm and bilateral shoulders HEAD: Atraumatic. Normocephalic. No temporal or scalp tenderness. EYES: Pupils equal round and reactive. Extraocular motions intact. No scleral icterus. No injection or drainage. ENT: Nose without bleeding, purulent drainage or septal hematoma. Throat without erythema, tonsillar hypertrophy or exudate. Uvula midline. Airway patent. NECK: Trachea midline. No JVD or lymphadenopathy. Supple, nontender, no meningeal signs. CARDIOVASCULAR: Regular rate and rhythm without murmurs, gallops, or rubs. RESPIRATORY: Clear to auscultation. Breath sounds equal bilaterally. No wheezes , rales, or rhonchi. GASTROINTESTINAL: Abdomen soft, non-tender, nondistended. No hepato-splenomegaly , or palpable masses. No guarding. MUSCULOSKELETAL: Extremities without clubbing, cyanosis, or edema. No joint tenderness, effusion, or edema noted. No calf tenderness. Negative Homans sign bilaterally. NEUROLOGICAL: Awake and alert. Cranial nerves II through XII intact. Motor and sensory grossly within normal limits. Five out of 5 muscle strength in all muscle groups. Normal speech. Laboratory Laboratory Tests Test 10/20/16 10/20/16 10/20/16 00:30 01:05 02:45 White Blood Count 6.0 Red Blood Count 3.18 Hemoglobin 10.6 Hematocrit 31.9 Mean Corpuscular Volume 100.5 Mean Corpuscular Hemoglobin 33.4 Mean Corpuscular Hemoglobin 33.2 Concent Red Cell Distribution Width 14.3 Platelet Count 168 Mean Platelet Volume 6.7 Neutrophils (%) (Auto) 78.0 Lymphocytes (%) (Auto) 6.3 Monocytes (%) (Auto) 10.4 Eosinophils (%) (Auto) 4.5 Basophils (%) (Auto) 0.8 Neutrophils # (Auto) 4.7 Lymphocytes # (Auto) 0.4 Monocytes # (Auto) 0.6 Eosinophils # (Auto) 0.3 Basophils # (Auto) 0.0 CBC Comment DIFF FINAL Differential Comment Prothrombin Time 12.1 Prothromb Time International 1.1 Ratio Activated Partial 26.9 Thromboplast Time Sodium Level 130 Potassium Level 4.8 Chloride Level 97 Carbon Dioxide Level 22.4 Anion Gap 11 Blood Urea Nitrogen 35 Creatinine 1.80 Estimat Glomerular Filtration 27 Rate Random Glucose 92 Calcium Level 8.0 Magnesium Level 2.3 Troponin I LESS THAN 0.02 Urine Color YELLOW Urine Turbidity SLIGHT Urine pH 5.5 Urine Specific [place] 1.007 Urine Protein NEG Urine Glucose (UA) NEG Urine Ketones NEG Urine Occult Blood TRACE Urine Nitrite NEG Urine Bilirubin NEG Urine Leukocyte Esterase LARGE Urine RBC 3-5 Urine WBC 50-99 Urine WBC Clumps FEW Urine Squamous Epithelial 0-5 Cells Urine Bacteria MANY Microscopic Urinalysis Comment CULTURE INDICATED Lactic Acid Level 1.0 Date/Time Procedure Status Source Growth 10/20/16 02:55 Aerobic Blood Culture Received Blood Peripheral Pending 10/20/16 02:55 Anaerobic Blood Culture Received Blood Peripheral Pending 10/20/16 01:05 Urine Culture Received Urine Clean Catch Pending Result Diagram: 10/20/16 0030 10/20/16 0030 Imaging Paracentesis 10/18 7.8 L Last Impressions Head CT 10/20/166 Signed Impressions: Service Date/Time: Thursday, October 20, 2016 01:04 - CONCLUSION: Normal examination. Alonso Montano MD Cervical Spine CT 10/20/1615 Signed Impressions: Service Date/Time: Thursday, October 20, 2016 01:04 - CONCLUSION: Degenerative changes without evidence for acute fracture or listhesis. Alonso Montano MD Assessment and Plan Problem List: (1) Fall ICD Code: W19.XXXA Status: Acute Plan: Multifactorial due to frailness, hypotension Continue with occupational and physical therapy rehabilitation efforts Patient may need to address long-term stability and long-term placement and a possible assisted living facility. This was discussed with her daughter. Patient does have mechanical assistive devices at home for ambulation which she does not use. Patient has been counseled to use cc prevent further falls (2) UTI (urinary tract infection) ICD Code: N39.0 Status: Acute Plan: Cultures pending continue Rocephin and oxybutynin Patient has a [place] area which she'll need to be evaluated by her gynecological Dr. (3) Hypotension ICD Code: I95.9 Status: Acute Plan: Multifactorial likely due to overdiuresis, large volume paracentesis recently and Gen. instability secondary chronic medical conditions Continue with rehabilitation efforts, adjust medications accordingly and encourage appropriate hydration endeavors (4) Cirrhosis ICD Code: K74.60 Status: Chronic Plan: End-stage liver disease requiring weekly paracentesis patient. Dr. Calderon. We'll review home medications and adjust accordingly to avoid further hypotension (5) Chronic kidney disease (CKD) ICD Code: N18.9 Status: Chronic Plan: Currently at baseline, continue follow outpatient with Dr. Torres (6) Hyponatremia ICD Code: E87.1 Status: Acute Plan: probably related to chronic related chronic volume issues follow trend with holding some of her diuretics Assessment and Plan Plan of care to determine by Hospital course Code Status Full code Discussed Condition With [facility] with [facility] and [facility] Problem Qualifiers (1) Fall: Qualified Code: W19.XXXA - Fall, initial encounter (2) UTI (urinary tract infection): Qualified Code: N39.0 - Urinary tract infection without hematuria, site unspecified (3) Cirrhosis: Qualified Code: K74.69 - Other cirrhosis of liver (4) Chronic kidney disease (CKD): Qualified Code: N18.9 - Chronic kidney disease (CKD), unspecified stage Candis Langston MD Oct 20, 2016 14:58
[2016-10-20] MEDS ORDERED: SODI650T PO (16:49)
[2016-10-20] MEDS: SPIRONOLACTONE 50 MG TAB PO SCH (17:19)
[2016-10-20] MEDS: FUROSEMIDE 20 MG TAB PO SCH (17:19)
[2016-10-20] MEDS ORDERED: SODIUM BICARBONATE 325 MG TAB PO ONE (21:00)
[2016-10-20] MEDS: cefTRIAXone INJ 1,000 MG in SODIUM CHLORIDE 0.9% INJ 100 ML IV SCH (22:45)
[2016-10-21] VITALS (9 sets, daily range): BP systolic 85–104; BP diastolic 46–63; PULSE 65–74; RESP 17–20; TEMP 95.8–98.6; O2SAT 92–97
[2016-10-21 05:53] LABS: AUTOMATED NEUTROPHIL # 4.6 TH/MM3 (1.8-7.7); BASOPHIL % 0.7 % (0.0-2.0); EOSINOPHIL # 0.3 TH/MM3 (0-0.4); EOSINOPHIL % 4.5 % (0.0-4.0); HEMATOCRIT 30.8 % (35.0-46.0); LYMPH % 7.8 % (9.0-44.0); LYMPHOCYTE # 0.5 TH/MM3 (1.0-4.8); MEAN CELL VOLUME 100.5 FL (80.0-100.0); MEAN CORPUSCULAR HEMOGLOBIN 34.1 PG (27.0-34.0); MEAN CORPUSCULAR HGB CONC 33.9 % (32.0-36.0); MONO % 8.7 % (0.0-8.0); NEUT % 78.3 % (16.0-70.0); PLATELET COUNT 153 TH/MM3 (150-450); RED BLOOD COUNT 3.07 MIL/MM3 (4.00-5.30); RED CELL DISTRIBUTION WIDTH 13.9 % (11.6-17.2); WHITE BLOOD COUNT 5.9 TH/MM3 (4.0-11.0)
[2016-10-21] MEDS: LEVOTHYROXINE SODIUM 88 MCG TAB PO SCH (05:53)
[2016-10-21 06:01] LABS: HEMO FLAGS DIFF FINAL
[2016-10-21 06:16] LABS: CHLORIDE 97 MEQ/L (98-107); POTASSIUM 4.9 MEQ/L (3.5-5.1); SODIUM (NA) 129 MEQ/L (136-145)
[2016-10-21 06:22] LABS: ANION GAP 11 MEQ/L (5-15); BICARBONATE 20.7 MEQ/L (21.0-32.0); BLOOD UREA NITROGEN 29 MG/DL (7-18)
[2016-10-21 06:25] LABS: ALT (GPT) 30 U/L (10-53); AST (GOT) 40 U/L (15-37); GLOMERULAR FILTRATION RATE 44 ML/MIN (>89)
[2016-10-21 06:26] LABS: TOTAL BILIRUBIN ADULT 0.8 MG/DL (0.2-1.0)
[2016-10-21 06:28] LABS: ALKALINE PHOSPHATASE 101 U/L (45-117)
[2016-10-21] MEDS: SODIUM CHLORIDE 0.9% FLUSH 5 ML FLUSH FLUSH SCH ×2 (09:47→20:29)
[2016-10-21] MEDS: CITALOPRAM HYDROBROMIDE 20 MG TAB PO SCH (09:48)
[2016-10-21] MEDS: SPIRONOLACTONE 50 MG TAB PO SCH ×2 (09:48→17:24)
[2016-10-21] MEDS: OXYBUTYNIN CHLORIDE 5 MG TAB PO SCH ×2 (09:49→20:29)
[2016-10-21] MEDS: LACTULOSE SYRUP 20 GM/30 ML CUP PO SCH ×2 (09:49→20:28)
[2016-10-21] MEDS: FUROSEMIDE 20 MG TAB PO SCH ×2 (09:49→17:25)
[2016-10-21] MEDS ORDERED: OXYC-392 PO (11:46)
--- NOTE | 2016-10-21 11:47 | HHI.DCPOC ---
Discharge Care Plan Diagnosis: (1) Fall Goals to Promote Your Health * To prevent worsening of your condition and complications * To maintain your health at the optimal level Directions to Meet Your Goals Take your medications as prescribed Follow your dietary instruction Follow activity as directed Keep your appointments as scheduled Take your immunizations and boosters as scheduled If your symptoms worsen call your PCP, if no PCP go to Urgent Care Center or Emergency Room Smoking is Dangerous to Your Health. Avoid second hand smoke Call the 24-hour hour crisis hotline for domestic abuse at Candis Langston MD Oct 21, 2016 11:47
--- NOTE | 2016-10-21 12:10 | HHI.PR ---
Subjective Remarks Patient seen and evaluated today in follow-up for frequent falls, ascites and hypotension. Patient doing well today. Discharge plan discussed at length with patient and daughter as well as physical therapy. Rehabilitation facility at discharge is been recommended and agreeable to by the family. Patient will need to continue with medication adjustment. Objective Vitals Vital Signs Date Time Temp Pulse Resp B/P Pulse Ox O2 Delivery O2 Flow Rate FiO2 10/21/16 09:37 93 21 10/21/16 08:59 97.6 66 18 89/53 94 10/21/16 04:00 96.9 66 18 87/57 92 10/21/16 00:00 97.9 70 18 98/54 94 10/20/16 20:30 92 21 10/20/16 20:00 97.2 78 18 99/57 93 10/20/16 16:23 75 10/20/16 16:00 99.0 74 20 97/53 93 I/O 10/20/16 10/20/16 10/20/16 10/21/16 10/21/16 10/21/16 07:00 15:00 23:00 07:00 15:00 23:00 Intake Total 350 ml 660 ml 150 ml Output Total 1300 ml 700 ml 1400 ml Balance -950 ml -40 ml -1250 ml Intake Oral 660 ml IV Total 350 ml 150 ml Output Urine Total 1300 ml 700 ml 1400 ml Bladder Scan Volume Amount 765 ml # Voids 5 Result Diagram: 10/21/16 0512 10/21/16 0512 Imaging Last Impressions Head CT 10/20/1615 Signed Impressions: Service Date/Time: Thursday, October 20, 2016 01:04 - CONCLUSION: Normal examination. Alonso Montano MD Cervical Spine CT 10/20/16 0016 Signed Impressions: Service Date/Time: Thursday, October 20, 2016 01:04 - CONCLUSION: Degenerative changes without evidence for acute fracture or listhesis. Alonso Montano MD Objective Remarks GENERAL: This is a frail, elderly well-developed patient, in no apparent distress. CARDIOVASCULAR: Regular rate and rhythm without murmurs, gallops, or rubs. RESPIRATORY: Clear to auscultation. Breath sounds equal bilaterally. No wheezes , rales, or rhonchi. GASTROINTESTINAL: Abdomen soft, non-tender, mildly distended. Normal active bowel sounds MUSCULOSKELETAL: Extremities without clubbing, cyanosis, or edema. NEURO: Alert & Oriented x4 to person, place, time, situation. Moves all ext x4 A/P Problem List: (1) Fall ICD Code: W19.XXXA Status: Acute Plan: Multifactorial due to frailness, hypotension Continue with occupational and physical therapy rehabilitation efforts (2) UTI (urinary tract infection) ICD Code: N39.0 Status: Acute Plan: Cultures pending continue for GNR Rocephin and oxybutynin (3) Hypotension ICD Code: I95.9 Status: Acute Plan: Improved Multifactorial likely due to overdiuresis, large volume paracentesis recently and general instability secondary chronic medical conditions Continue with rehabilitation efforts, adjust medications accordingly and encourage appropriate hydration endeavors (4) Cirrhosis ICD Code: K74.60 Status: Chronic Plan: End-stage liver disease requiring weekly paracentesis patient. Follows up with Dr. Calderon. We'll review home medications and adjust accordingly to avoid further hypotension (5) Chronic kidney disease (CKD) ICD Code: N18.9 Status: Chronic Plan: Currently at baseline, continue follow outpatient with Dr. Torres (6) Hyponatremia ICD Code: E87.1 Status: Acute Plan: probably related to chronic related chronic volume issues resume 80 Mg lasix cont aldactone (7) VALERIA (acute kidney injury) ICD Code: N17.9 Status: Acute Plan: resolving Maintain amanda due to retention Outpatient [facility] up Discharge Planning likely to rehab in am Problem Qualifiers (1) Fall: Qualified Code: W19.XXXA - Fall, initial encounter (2) UTI (urinary tract infection): Qualified Code: N39.0 - Urinary tract infection without hematuria, site unspecified (3) Cirrhosis: Qualified Code: K74.69 - Other cirrhosis of liver (4) Chronic kidney disease (CKD): Qualified Code: N18.9 - Chronic kidney disease (CKD), unspecified stage Candis Langston MD Oct 21, 2016 12:10
[2016-10-21] MEDS ORDERED: SODIUM BICARBONATE 650 MG TAB PO SCH (14:15)
[2016-10-21] MEDS: SODIUM BICARBONATE 325 MG TAB PO SCH ×2 (14:34→20:29)
[2016-10-21] MEDS: cefTRIAXone INJ 1,000 MG in SODIUM CHLORIDE 0.9% INJ 100 ML IV SCH (23:25)
[2016-10-22 04:00] VITALS: BP 101/53; PULSE 67; RESP 20; TEMP 97.5; O2SAT 92
[2016-10-22] MEDS: SODIUM BICARBONATE 325 MG TAB PO SCH (05:33)
[2016-10-22] MEDS: LEVOTHYROXINE SODIUM 88 MCG TAB PO SCH (05:33)
[2016-10-22 06:43] LABS: POTASSIUM 4.7 MEQ/L (3.5-5.1)
[2016-10-22 06:48] LABS: BICARBONATE 21.5 MEQ/L (21.0-32.0)
[2016-10-22 08:00] VITALS: BP 105/64; PULSE 64; RESP 18; TEMP 97.4; O2SAT 96
[2016-10-22] MEDS: CITALOPRAM HYDROBROMIDE 20 MG TAB PO SCH (08:54)
[2016-10-22] MEDS: SPIRONOLACTONE 50 MG TAB PO SCH (08:54)
[2016-10-22] MEDS: SODIUM CHLORIDE 0.9% FLUSH 5 ML FLUSH FLUSH SCH (08:54)
[2016-10-22] MEDS: OXYBUTYNIN CHLORIDE 5 MG TAB PO SCH (08:55)
[2016-10-22] MEDS: FUROSEMIDE 20 MG TAB PO SCH (08:55)
[2016-10-22] MEDS: LACTULOSE SYRUP 20 GM/30 ML CUP PO SCH (08:56)
--- NOTE | 2016-10-22 10:53 | HHI.PR ---
Subjective Remarks Seen today in follow-up for hypotension, UTI and for hyponatremia. Patient also with frequent falls. Patient will benefit from rehabilitation placement which we are working on. Urinary tract infection does show Citrobacter freundii. Sensitive to Rocephin Objective Vitals Vital Signs Date Time Temp Pulse Resp B/P Pulse Ox O2 Delivery O2 Flow Rate FiO2 10/22/16 08:00 97.4 64 18 105/64 96 10/22/16 04:00 97.5 67 20 101/53 92 10/21/16 23:57 96.7 74 20 103/63 94 10/21/16 20:00 97.4 71 20 100/58 97 10/21/16 17:35 98.6 72 18 85/46 94 10/21/16 17:15 68 18 104/59 10/21/16 12:20 95.8 65 17 85/53 95 I/O 10/21/16 10/21/16 10/21/16 10/22/16 10/22/16 10/22/16 07:00 15:00 23:00 07:00 15:00 23:00 Intake Total 150 ml 200 ml 1720 ml 340 ml 240 ml Output Total 1400 ml 1055 ml 850 ml Balance -1250 ml 200 ml 665 ml -510 ml 240 ml Intake Oral 200 ml 1720 ml 240 ml 240 ml IV Total 150 ml 100 ml Output Urine Total 1400 ml 1055 ml 850 ml # Bowel Movements 0 Result Diagram: 10/21/16 0512 10/22/16 0500 Objective Remarks GENERAL: This is a frail, elderly well-developed patient, in no apparent distress. CARDIOVASCULAR: Regular rate and rhythm without murmurs, gallops, or rubs. RESPIRATORY: Clear to auscultation. Breath sounds equal bilaterally. No wheezes , rales, or rhonchi. GASTROINTESTINAL: Abdomen soft, non-tender, mildly distended. Normal active bowel sounds MUSCULOSKELETAL: Extremities without clubbing, cyanosis, or edema. NEURO: Alert & Oriented x4 to person, place, time, situation. Moves all ext x4 A/P Problem List: (1) Fall ICD Code: W19.XXXA Status: Acute Plan: Multifactorial due to frailness, hypotension Continue with occupational and physical therapy rehabilitation efforts SNF at d/c (2) UTI (urinary tract infection) ICD Code: N39.0 Status: Acute Plan: Cultures pending continue for Citrobacter freundii sensitive to Rocephin Rocephin 2/3 uncomplicated and oxybutynin voiding trial (3) Hypotension ICD Code: I95.9 Status: Acute Plan: Improved Multifactorial likely due to overdiuresis, large volume paracentesis recently and general instability secondary chronic medical conditions Continue with rehabilitation efforts, adjust diuretic medications accordingly and encourage appropriate hydration endeavors (2L fluid restriction per nephrology) (4) Cirrhosis ICD Code: K74.60 Status: Chronic Plan: End-stage liver disease requiring weekly (friday) paracentesis patient. Follows up with Dr. Calderon. We'll review home medications and adjust accordingly to avoid further hypotension (5) Chronic kidney disease (CKD) ICD Code: N18.9 Status: Chronic Plan: Currently at baseline, continue follow outpatient with Dr. Torres (6) Hyponatremia ICD Code: E87.1 Status: Acute Plan: probably related to chronic related chronic volume issues resume 100 Mg lasix daily/ divided cont aldactone patient was on Sodium bicarb which we have also resumed (7) VALERIA (acute kidney injury) ICD Code: N17.9 Status: Acute Plan: resolving voiding trial Discharge Planning to rehab when bed available Problem Qualifiers (1) Fall: Qualified Code: W19.XXXA - Fall, initial encounter (2) UTI (urinary tract infection): Qualified Code: N39.0 - Urinary tract infection without hematuria, site unspecified (3) Cirrhosis: Qualified Code: K74.69 - Other cirrhosis of liver (4) Chronic kidney disease (CKD): Qualified Code: N18.9 - Chronic kidney disease (CKD), unspecified stage Candis Langston MD Oct 22, 2016 10:53
[2016-10-22] MEDS ORDERED: CIPROFLOXACIN 500 MG TAB PO SCH (11:45)
[2016-10-22] MEDS ORDERED: CIPR500T2 PO (11:46)
--- NOTE | 2016-10-22 11:54 | HHI.DS ---
Discharge Summary Admission Date Oct 20, 2016 at 02:14 Discharge Date: Oct 22, 2016 Admitting Diagnosis syncope; uti; h/o recurrent hypotension (1) Fall ICD Code: W19.XXXA (2) UTI (urinary tract infection) ICD Code: N39.0 (3) Hypotension ICD Code: I95.9 (4) Cirrhosis ICD Code: K74.60 (5) Chronic kidney disease (CKD) ICD Code: N18.9 (6) Hyponatremia ICD Code: E87.1 (7) VALERIA (acute kidney injury) ICD Code: N17.9 Procedures none Brief History - From Admission This patient is a very pleasant 76-year-old female with end-stage liver disease , nonalcoholic who did have several falls over the last 48 hours at home. She fell Friday and injured her arm and head. She had an appointment for her scheduled paracentesis and after 7.8 L removed the patient did go to the emergency room for evaluation and management of skin tears. Patient subsequently went home and had another fall the next day. Patient has chronic weakness and is supposed to use her mechanical assistance devices but is nonadherent with these. She has lost weight and has become more frail per her daughter lives close by. She does care for herself in her activities of daily living are done independently. Patient however appears to have declined over the last several months and the family is quite concerned. She does have end- stage liver disease with chronic renal failure and has been on multiple diuretics and lactulose with poor oral intake. For these reasons the patient is admitted to the hospital for further evaluation and treatment CBC/BMP: 10/21/16 0512 10/22/16 0500 Significant Findings Laboratory Tests Test 10/20/16 10/20/16 10/21/16 10/22/16 00:30 01:05 05:12 05:00 Prothrombin Time 12.1 SEC (9.8-11.6) Sodium Level 130 MEQ/L 129 MEQ/L 126 MEQ/L (136-145) (136-145) (136-145) Chloride Level 97 MEQ/L 97 MEQ/L 94 MEQ/L (98-107) (98-107) (98-107) Blood Urea Nitrogen 35 MG/DL (7-18) 29 MG/DL (7-18) 29 MG/DL (7-18) Creatinine 1.80 MG/DL 1.20 MG/DL 1.20 MG/DL (0.50-1.00) (0.50-1.00) (0.50-1.00) Estimat Glomerular Filtration 27 ML/MIN (>89) 44 ML/MIN (>89) 44 ML/MIN (>89) Rate Calcium Level 8.0 MG/DL 8.0 MG/DL 7.7 MG/DL (8.5-10.1) (8.5-10.1) (8.5-10.1) Troponin I LESS THAN 0.02 NG/ML (0.02-0.05) Red Blood Count 3.18 MIL/MM3 3.07 MIL/MM3 (4.00-5.30) (4.00-5.30) Hemoglobin 10.6 GM/DL 10.4 GM/DL (11.6-15.3) (11.6-15.3) Hematocrit 31.9 % 30.8 % (35.0-46.0) (35.0-46.0) Mean Corpuscular Volume 100.5 FL 100.5 FL (80.0-100.0) (80.0-100.0) Mean Platelet Volume 6.7 FL (7.0-11.0) Neutrophils (%) (Auto) 78.0 % 78.3 % (16.0-70.0) (16.0-70.0) Lymphocytes (%) (Auto) 6.3 % 7.8 % (9.0-44.0) (9.0-44.0) Monocytes (%) (Auto) 10.4 % 8.7 % (0.0-8.0) (0.0-8.0) Eosinophils (%) (Auto) 4.5 % (0.0-4.0) 4.5 % (0.0-4.0) Lymphocytes # (Auto) 0.4 TH/MM3 0.5 TH/MM3 (1.0-4.8) (1.0-4.8) Urine Occult Blood TRACE (NEG) Urine Leukocyte Esterase LARGE (NEG) Urine WBC 50-99 /hpf (0-5) Urine WBC Clumps FEW (NONE) Urine Bacteria MANY /hpf (NONE) Mean Corpuscular Hemoglobin 34.1 PG (27.0-34.0) Carbon Dioxide Level 20.7 MEQ/L (21.0-32.0) Aspartate Amino Transf 40 U/L (15-37) (AST/SGOT) Total Protein 5.7 GM/DL (6.4-8.2) Albumin 2.6 GM/DL (3.4-5.0) Random Glucose 107 MG/DL (74-106) Imaging Last Impressions Head CT 10/20/1615 Signed Impressions: Service Date/Time: Thursday, October 20, 2016 01:04 - CONCLUSION: Normal examination. Alonso Montano MD Cervical Spine CT 10/20/1615 Signed Impressions: Service Date/Time: Thursday, October 20, 2016 01:04 - CONCLUSION: Degenerative changes without evidence for acute fracture or listhesis. Alonso Montano MD PE at Discharge GENERAL: This is a frail, elderly well-developed patient, in no apparent distress. CARDIOVASCULAR: Regular rate and rhythm without murmurs, gallops, or rubs. RESPIRATORY: Clear to auscultation. Breath sounds equal bilaterally. No wheezes , rales, or rhonchi. GASTROINTESTINAL: Abdomen soft, non-tender, mildly distended. Normal active bowel sounds MUSCULOSKELETAL: Extremities without clubbing, cyanosis, or edema. NEURO: Alert & Oriented x4 to person, place, time, situation. Moves all ext x4 Pt update on day of discharge see progress note Hospital Course Patient is a 76-year-old female with known history of chronic liver disease and chronic kidney disease. Patient did have frequent falls and requires physical therapy and rehabilitation efforts. Due to her instability and chronic comorbidities patient was recommended for rehabilitation discharge to rehabilitation. Patient did have evidence of urinary tract infection which was treated with antibiotics as well as some urinary retention which was relieved with catheter placement. Patient does have paracentesis due to ascites on Friday and recently had 7.8 L removed paracentesis. She also has hypotension. Patient did well in the hospital although she was unsteady independently and required assistance with nursing care for stability. Pt Condition on Discharge: Good Discharge Disposition: Discharge to SNF Discharge Time: > 30 minutes Discharge Instructions DIET: Follow Instructions for: As Tolerated, No Restrictions Fluid Restrictions: 2 liters/day Activities you can perform: Regular-No Restrictions Follow up Referrals: Urology - 1 Week @ [facility] New Orders: US GUIDED ABDOMEN PARACENTESIS - 10/25/16 New Medications: Ciprofloxacin (Ciprofloxacin) 500 Mg Tab 500 MG PO ONCE give at night to complete Rx Infection #1 Ref 0 TAB Oxycodone (Oxycodone) 5 Mg Tab 5 MG PO Q4H PRN PAIN SCALE 3 TO 5 #60 TAB Continued Medications: Citalopram (Citalopram) 10 Mg Tab 10 MG PO DAILY Control Depression #30 Ref 0 TAB Furosemide (Lasix) 40 Mg Tab 60 MG PO DAILY #60 Ref 0 TAB Furosemide (Lasix) 40 Mg Tab 40 MG PO HS #30 Ref 0 TAB Lactulose Liq (Lactulose Liq) 10 Gm/15 Ml Soln 50 MG PO BID Ref 0 ML Levothyroxine (Levothyroxine) 88 Mcg Tab 88 MCG PO DAILY Thyroid #30 Ref 0 TAB Sodium Bicarbonate (Sodium Bicarbonate) 650 Mg Tab 650 MG PO TIDPC #90 Ref 0 TAB Spironolactone (Spironolactone) 50 Mg Tab 50 MG PO BIDPC #60 Ref 0 TAB Additional Information Repeat BMP, Dx Hyponatremia Voiding trial, Dx. (900 Ml Retention, UTI) Candis Langston MD Oct 22, 2016 11:54
[2016-10-22 12:00] VITALS: BP 98/61; PULSE 70; RESP 18; TEMP 96.8; O2SAT 95
[2016-10-22] MEDS ORDERED: FUROSEMIDE 20 MG TAB PO SCH (21:00)
[2016-10-23] MEDS ORDERED: FUROSEMIDE 80 MG TAB PO SCH (09:00)
== END 2016-10-22 14:25 ==
LOC: PHEFT → UNDOADMOB 02:14 → PHEDA 02:14 → PH3B 03:23
PROVIDERS: ADMIT Hospitalist; ATTEND Hospitalist
DX: R55 Syncope and collapse (principal); I95.9 Hypotension, unspecified; N39.0 Urinary tract infection, site not specified; B96.89 Other specified bacterial agents as the cause of diseases classified elsewhere; S01.01XA Laceration without foreign body of scalp, initial encounter; K74.60 Unspecified cirrhosis of liver; E86.9 Volume depletion, unspecified; E07.9 Disorder of thyroid, unspecified; M19.90 Unspecified osteoarthritis, unspecified site; K72.90 Hepatic failure, unspecified without coma; N17.9 Acute kidney failure, unspecified; N18.9 Chronic kidney disease, unspecified; I12.9 Hypertensive chronic kidney disease with stage 1 through stage 4 chronic kidney disease, or unspecified chronic kidney disease; E03.9 Hypothyroidism, unspecified; R18.8 Other ascites; E87.1 Hypo-osmolality and hyponatremia; I25.10 Atherosclerotic heart disease of native coronary artery without angina pectoris; R29.6 Repeated falls; W01.0XXA Fall on same level from slipping, tripping and stumbling without subsequent striking against object, initial encounter; Y92.009 Unspecified place in unspecified non-institutional (private) residence as the place of occurrence of the external cause
CPT/HCPCS: 70450; 72125; 80048; 80053; 81001; 83605; 83735; 84443; 84484; 85025; 85610; 85730; 87040; 87077; 87086; 87186; 93005; 97162; 97166; 99285; G0378; G8987; G8988; J0696; J7050

== ENCOUNTER 2016-10-23 00:46 | Emergency (ER) | payer OTHER ==
[~2016-10-23] VITALS: Ht 162.6 cm; Wt 80.0 kg
[~2016-10-23 00:46] MED LIST changes: -BACT2OIN TOPICAL; +CIPR500T2 PO; +OXYC-392 PO; +SODI650T PO
--- NOTE | 2016-10-23 01:08 | PD ---
HPI Chief Complaint: right low back pain Time Seen by Provider: 00:54 Travel History International Travel<30 days: No Contact w/Intl Traveler<30days: No History of Present Illness HPI The patient is 76 years old. She suffers with non-alcoholic cirrhosis and ascites. She undergoes weekly paracentesis here; typically 7.5 L of ascites or draining. The patient was discharged from the [facility] yesterday following an admission for UTI. She was sent to a physical therapy/ rehabilitation facility for strengthening of the legs and with a Cipro prescription . She complained of abdominal pain at her skilled facility. She also complained with the presence of Lee. She received oxycodone. In the ER she has no complaint. Her children state the patient is scheduled for a paracentesis first thing in the morning and a ride from the rehabilitation facility is scheduled. PFSH Past Medical History Arthritis: Yes Depression: Yes Cancer: No Cardiovascular Problems: Yes (CHRONIC HYPOTENSION ) Cirrhosis: Yes (NON-ALCOHOLIC CIRRHOSIS OF LIVER) Coronary Artery Disease: Yes Diabetes: No Diminished Hearing: No Endocrine: Yes Gastrointestinal Disorders: Yes (ESLD- non-alcoholic) Genitourinary: Yes Hepatitis: No Hiatal Hernia: No Immune Disorder: No Musculoskeletal: No Neurologic: Yes (STATES SHE HAS SOME PARKINSONS ) Psychiatric: Yes Reproductive: No Respiratory: Yes Renal Failure: Yes Thyroid Disease: Yes (HYPO ) Menopausal: Yes Past Surgical History Abdominal Surgery: Yes (APPENDECTOMY ) AICD: No Appendectomy: Yes Joint Replacement: No Oral Surgery: Yes (WISDOM TEETH ) Pacemaker: No Other Surgery: Yes (APPENDECTOMY, COLLAR BONE REPAIR A CHILD) Social History Alcohol Use: No Tobacco Use: No Substance Use: No Allergies-Medications (Allergen,Severity, Reaction): Coded Allergies: No Known Allergies (Unverified , 10/23/16) Reported Meds & Prescriptions Reported Meds & Active Scripts Active Ciprofloxacin (Ciprofloxacin HCl) 500 Mg Tab 500 Mg PO ONCE give at night to complete Rx Oxycodone (Oxycodone HCl) 5 Mg Tab 5 Mg PO Q4H PRN Reported Sodium Bicarbonate 650 Mg Tab 650 Mg PO TIDPC Levothyroxine (Levothyroxine Sodium) 88 Mcg Tab 88 Mcg PO DAILY Citalopram (Citalopram Hydrobromide) 10 Mg Tab 10 Mg PO DAILY Lactulose Liq (Lactulose) 10 Gm/15 Ml Soln 50 Mg PO BID Spironolactone 50 Mg Tab 50 Mg PO BIDPC Lasix (Furosemide) 40 Mg Tab 40 Mg PO HS Lasix (Furosemide) 40 Mg Tab 60 Mg PO DAILY Review of Systems Except as stated in HPI: all other systems reviewed are Neg General / Constitutional: No: Fever, Chills HENT: No: Headaches Cardiovascular: No: Chest Pain or Discomfort, Palpitations Respiratory: Positive: Shortness of Breath, No: Cough, Hemoptysis, Night Sweats Gastrointestinal: Positive: Abdominal Pain (discomfort due to ascites ), No: Nausea, Vomiting Musculoskeletal: Positive: Weakness, Pain (back soreness, has been lying on her back ) Physical Exam Narrative GENERAL: 76 yo F, NAD, chronically ill appearance SKIN: Warm and dry. HEAD: Atraumatic. Normocephalic. EYES: Pupils equal and round. No scleral icterus. No injection or drainage. ENT: No nasal bleeding or discharge. Mucous membranes pink and moist. NECK: Trachea midline. No JVD. CARDIOVASCULAR: Regular rate and rhythm. No murmur appreciated. RESPIRATORY: No accessory muscle use. Clear to auscultation. Breath sounds equal bilaterally. GASTROINTESTINAL: Soft. No focus of tenderness. Moderate prominence c/w ascites. MUSCULOSKELETAL: No obvious deformities. No clubbing. No cyanosis. No edema. NEUROLOGICAL: AO x 2. No obvious cranial nerve deficits. Motor grossly within normal limits. PSYCHIATRIC: Appropriate mood and affect; insight and judgment normal. Data Data Last Documented VS Vital Signs Date Time Temp Pulse Resp B/P Pulse Ox O2 Delivery O2 Flow Rate FiO2 10/23/16 01:20 98.6 69 16 109/51 99 VS [facility] Medical Decision Making Medical Screen Exam Complete: Yes Emergency Medical Condition: Yes Medical Record Reviewed: Yes Differential Diagnosis Ascites, UTI, pain from Lee catheter Narrative Course The patient is suitable for discharge home. Her vital signs are within acceptable in. The children provide a very detailed history regarding the patient's intent on coming to the ER, specifically trying to be discharged home from the rehabilitation facility. Her abdomen is soft. She has no appreciable dyspnea. Her lungs are clear and there is no peripheral edema. Furthermore she has an appointment in about 5 hours for paracentesis. The family understands that admission to the hospital is not indicated she will be discharged home to her facility. Diagnosis Primary Impression: Ascites Qualified Code: R18.8 - Other ascites Referrals: INVASIVE RADIOLOGY IN AM SCHEDULED Additional Instructions: You have a choice when it comes to health care, and we are glad that you chose [facility]. Hopefully, we have met your expectations on today's visit. You are welcome to return to [facility] at any time, as we are committed to meeting the health care needs of our community. Med/Other Pt SpecificInfo: No Meds Exist/No RX given Disposition: 01 DISCHARGE HOME Condition: Severino Ruelas MD Oct 23, 2016 01:08
[2016-10-23 01:20] VITALS: BP 109/51; PULSE 69; RESP 16; TEMP 98.6; O2SAT 99
[2016-10-23 07:15] VITALS: BP 90/55; PULSE 60; RESP 18; O2SAT 100
== END 2016-10-23 10:16 | disposition home or self-care (01) ==
LOC: NEPE 00:46
DX: R18.8 Other ascites (principal); I25.10 Atherosclerotic heart disease of native coronary artery without angina pectoris
CPT/HCPCS: 99284

== ENCOUNTER 2016-10-23 08:24 | Day surgery (SDC) | payer MEDICARE, OTHER ==
[2016-10-23 08:38] VITALS: BP 125/71; PULSE 66; RESP 14; TEMP 97; O2SAT 95
[2016-10-23 10:08] VITALS: BP 107/61; PULSE 63; RESP 18; TEMP 97.7; O2SAT 98
[2016-10-23] MEDS ORDERED: ALBUMIN HUMAN 25% 12.5GM-W/25GM FOR 37.5GM IV ONE (10:15)
[2016-10-23] MEDS ORDERED: ALBUMIN HUMAN 25% 25GM-W/12.5GM FOR 37.5GM IV ONE (10:15)
[2016-10-23 10:26] VITALS: BP 108/64; PULSE 63; RESP 16; O2SAT 98
--- NOTE | 2016-10-23 12:20 | RADRPT ---
EXAM DATE/TIME: 10/23/2016 08:50 [facility] COMPARISON: EXTERNAL COMPARISON: US GUIDED ABD PARACENTESIS, October 18, 2016, 8:49. [facility], US ABDOMEN - UPPER LIMITED, Aug 12 2016. [facility], US ABDOMEN - UPPER LIMITED, June 04, 2016. [facility], US ABDOMEN, COMPLETE, February 22, 2016. [facility], CT ABDOMEN & PELVIS W/O CONTRAST, September 30, 2015. [facility], US ABDOMEN, COMPLETE, August 22, 2015. INDICATIONS : Ascites. MEDICAL HISTORY : Arthritis. Hyperthyroidism. Stage III renal disease. Lower back pain. ESLD non-alcoholic. Ascites. Coronary artery disease. SURGICAL HISTORY : Appendectomy. Collar bone repair. Paracentesis. ENCOUNTER: [facility] ACUITY: 1 week PAIN SCORE: 5/10 LOCATION: Right lower quadrant FLUID: Total volume of 6,800 cc of clear, yellow fluid was removed. Fluid was discarded. Paracentesis was therapeutic only. Post procedure scanning reveals no hematoma or other complication. TECHNIQUE: 1. Ultrasound guidance for abdominal paracentesis. 2. Paracentesis. The risks, benefits, and alternatives to ultrasound guided paracentesis were explained to the patient in detail including the risk of bleeding and infection. Written and verbal informed consent was obt ained. With the patient on the ultrasound table, ultrasound imaging was used to select the most appropriate approach for paracentesis. Overlying skin was prepped and draped in the usual sterile fashion and wi th a local anesthetic, a dermatotomy was made with an 11 blade scalpel. A 6 Lao [id number] ca theter was introduced into the peritoneal cavity and fluid was collected. The patient tolerated the procedure well and left the ultrasound suite in stable condition. CONCLUSION: Uncomplicated ultrasound guided paracentesis. Patient received albumin per protocol. Papo Keating MD FACR on October 23, 2016 at 12:18 Board Certified Radiologist. This report was verified electronically.
== END 2016-10-23 11:14 | disposition short-term general hospital (02) ==
LOC: HRAD 08:24
PROVIDERS: ATTEND Family Medicine
DX: R18.8 Other ascites (principal); I25.10 Atherosclerotic heart disease of native coronary artery without angina pectoris; M19.90 Unspecified osteoarthritis, unspecified site
CPT/HCPCS: 49083; 99284; C1729; P9047

== ENCOUNTER 2016-11-01 07:54 | Day surgery (SDC) | payer OTHER ==
[2016-11-01 07:58] VITALS: BP 102/61; PULSE 68; RESP 14; TEMP 97; O2SAT 92
[2016-11-01 10:02] VITALS: BP 83/50; PULSE 71; RESP 18; TEMP 97.8; O2SAT 95
--- NOTE | 2016-11-01 13:34 | RADRPT ---
EXAM DATE/TIME: 11/01/2016 08:12 [facility] COMPARISON: EXTERNAL COMPARISON: US GUIDED ABD PARACENTESIS, October 23, 2016, 8:50. [facility], US ABDOMEN LIMITED, Aug 12 2016, June 04, 2016, US ABDOMEN - COMPLETE, February 22, 2016, August 22, 2015, CT ABDOMEN & PELV IS W/O CONTRAST, September 30, 2014. INDICATIONS : Ascites. MEDICAL HISTORY : Hyperthyroidism. Arthritis. Cirrhosis. Head trauma. Syncope. Ascites. Chronic hypotension. CAD. Dyspn ea. ESLD-non alcoholic. Stage III renal disease. UTI. SURGICAL HISTORY : Appendectomy. Collar bone repair as child. Paracentesis. ENCOUNTER: [facility] ACUITY: 1 week PAIN SCORE: 3/10 LOCATION: Right lower quadrant FLUID: Total volume of 5800 cc of clear, yellow fluid was removed. Fluid was discarded. Paracentesis was therapeutic only. Post procedure scanning reveals no hematoma or other complication. TECHNIQUE: 1. Ultrasound guidance for abdominal paracentesis. 2. Paracentesis. The risks, benefits, and alternatives to ultrasound guided paracentesis were explained to the patient in detail including the risk of bleeding and infection. Written and verbal informed consent was obt ained. With the patient on the ultrasound table, ultrasound imaging was used to select the most appropriate approach for paracentesis. Overlying skin was prepped and draped in the usual sterile fashion and wi th a local anesthetic, a dermatotomy was made with an 11 blade scalpel. A 6 [place] [id number] ca theter was introduced into the peritoneal cavity and fluid was collected. The patient tolerated the procedure well and left the ultrasound suite in stable condition. CONCLUSION: Uncomplicated ultrasound guided paracentesis. Papo Keating MD FACR on November 01, 2016 at 13:32 Board Certified Radiologist. This report was verified electronically.
== END 2016-11-01 10:15 | disposition home or self-care (01) ==
LOC: HRAD 07:54 → HRIP 07:54 → HRAD 10:15
PROVIDERS: ATTEND Family Medicine
DX: R18.8 Other ascites (principal)
CPT/HCPCS: 49083; C1729